=== PATIENT | female | born 1960 | race Caucasian/White ===

== ENCOUNTER 2020-08-13 08:44 | Day surgery (SDC) | payer OTHER, SELFPAY ==
[2020-08-09 13:42] VITALS: BMI 19.8
[2020-08-09 13:48] VITALS: BMI 19.8
[2020-08-13] MEDS: sodium chloride 0.9% 1,000 ML 30 ML IV (09:22)
--- NOTE | 2020-08-13 09:38 | W.PM.OPSFHP ---
Same Day Surgery H&P Indication for Procedure/HPI DATE OF PROCEDURE: August 13, 2020 CHIEF COMPLAINT/INDICATIONFOR SURGICAL PROCEDURE: Dysphagia PREOP DIAGNOSIS: d PLANNED PROCEDRUE: Operation Date: 08/13/20 09:45 Proposed Procedures p EGD Dilation W/ Bougie 79078 r13.10(Not Applicable) - Myles Hays MD Medications/Allergies* Home Medications Medication Instructions Recorded Confirmed Type tramadol 50 mg tablet 50 mg PO Q6H PRN 07/09/20 08/13/20 History Allergies/Adverse Reactions Allergy/AdvReac Type Severity Reaction Status Date / Time iodine Allergy Unknown Verified 08/13/20 09:00 morphine Allergy Unknown Verified 08/13/20 09:00 Current Medications: Generic Name Dose Route Start Last Admin Trade Name Freq PRN Reason Stop Dose Admin Sodium Chloride 1,000 mls @ 30 mls/hr 08/13/20 09:00 08/13/20 09:22 Sodium Chloride 0.9% IV 30 mls/hr .Q24H ZHAO Administration Pertinent History/Comorbid Conditions* Medical History (Updated 07/09/20 @ 14:55 by Myles Hays MD) GERD (gastroesophageal reflux disease) Hiatal hernia Family History (Updated 07/09/20 @ 14:16 by Tiffanie Cintron RN) Diabetes Family/Other Myocardial infarction Grandmother Family/Other Aunt Cancer Grandmother lung Social History Smoking and tobacco status: never smoked Alcohol intake: never Current gender identity: Female Pertinent Exam Findings alert, oriented x 3, clear to auscultation bilaterally, regular rate & rhythm, operative site marked and procedure specific exam findings Recommendations Surgery/Procedure today Coding Level of Care Code Acute 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
--- NOTE | 2020-08-13 09:57 | ANES.PREANE2 ---
Pre-Anesthetic Assessment Pre-Anesthetic Assessment: Height/Weight: Height 1.68 m Weight 55.792 kg Proposed Procedure: Operation Date: 08/13/20 09:45 Proposed Procedures p EGD Dilation W/ Bougie 19632 r13.10(Not Applicable) - Myles Hays MD Was Beta Loren taken within 24 hours: N/A Last intake: Intake Last Liquid Date 08/12/20 Last Liquid Time 20:00 Last Solid Date 08/12/20 Last Solid Time 20:00 Social: Social History: No alcohol and No tobacco Exam: Pre-Anes Outpt Exam: alert, oriented x 3, clear to auscultation bilaterally and regular rate & rhythm Airway: Submandibular: WNL Cervical ROM: WNL MP: 2 Dentition: Full History/ROS: No significant history except as noted Musc/skel: Musc/skel: Fibromyalgia Comments: Chronic pain Neuropsych: Neuropsych: None reported Anesthetic Plan: ASA status: 2 Anesthesia: MAC Risk of > 500 ml blood loss (7ml/kg in children): No Meds/Allergies Current Medications: Current Medications Generic Name Dose Route Start Last Admin Trade Name Freq PRN Reason Stop Dose Admin Sodium Chloride 1,000 mls @ 30 ml s/hr 08/13/20 09:00 08/13/20 09:22 Sodium Chloride 0.9% IV 30 mls/hr .Q24H ZHAO Administration PFSH Anesthesia PFSH: Medical History (Updated 07/09/20 @ 14:55 by Myles Hays MD) GERD (gastroesophageal reflux disease) Hiatal hernia Family History (Updated 07/09/20 @ 14:16 by Tiffanie Cintron RN) Grandmother Myocardial infarction Cancer lung Family/Other Myocardial infarction Aunt Diabetes Social History (Updated 07/09/20 @ 11:34 by Tiffanie Cintron, RN) Smoking and tobacco status: never smoked Alcohol intake: never Current gender identity: Female Data Anesthesia Cardiac Studies: No Data to Display
[2020-08-13 09:58] VITALS: BP 109/56; PULSE 52; RESP 16; TEMP 36.4; O2SAT 100
--- NOTE | 2020-08-13 10:05 | ANE.PACU2 ---
Inpatient post-anesthesia follow up: Airway intact: Yes Vital signs: Temperature 97.5 F Pulse Rate 52 Respiratory Rate 16 Blood Pressure 109/56 Pulse Oximetry 100 Oxygen Delivery Me thod Nasal Cannula Oxygen Flow Rate 2 Fraction of Inspir ed Oxygen Hydration adequate: Yes Nausea and vomiting: Yes Mental status: Baseline
[2020-08-13 10:22] VITALS: BP 111/61; PULSE 45; RESP 18; O2SAT 100
--- NOTE | 2020-08-13 15:19 | ANE.PACU2 ---
Inpatient post-anesthesia follow up: Airway intact: Yes Vital signs: Temperature 97.5 F Pulse Rate 45 Respiratory Rate 18 Blood Pressure 111/61 Pulse Oximetry 100 Oxygen Delivery Me thod Room Air Oxygen Flow Rate 2 Fraction of Inspir ed Oxygen Hydration adequate: Yes Nausea and vomiting: No Pain level: 1 Mental status: Baseline
[2020-08-14 14:08] LABS: H. Pylori / CLO Test Negative
== END 2020-08-13 10:40 | disposition home or self-care (01) ==
PROVIDERS: PCP Internal Medicine; Visit Provider Internal Medicine
DX: R13.10 Dysphagia, unspecified (principal); K29.71 Gastritis, unspecified, with bleeding; M79.7 Fibromyalgia; K21.9 Gastro-esophageal reflux disease without esophagitis
CPT/HCPCS: 12345; 43239; 87077; J2704; J7030

== ENCOUNTER 2021-10-30 19:11 | Emergency (ER) | payer OTHER, SELFPAY ==
--- NOTE | 2021-10-30 19:14 | XRR_ITS ---
PROCEDURE INFORMATION: Exam: XR Chest Exam date and time: 10/30/2021 7:29 PM Age: 61 years old Clinical indication: Pain; Angina pectoris; Additional info: Chest pain TECHNIQUE: Imaging protocol: XR of the chest. Views: 1 view. COMPARISON: No relevant prior studies available. FINDINGS: Lungs: Lungs well expanded. No consolidation. Pleural spaces: Unremarkable. No pleural effusion. No pneumothorax. Heart/Mediastinum: Unremarkable. No cardiomegaly. Bones/joints: Unremarkable. XR/XR chest 1V portable [id number] IMPRESSION: No acute findings.
[2021-10-30 19:17] VITALS: BP 153/65; PULSE 84; RESP 16; TEMP 36.8; O2SAT 100; BMI 19.3
--- NOTE | 2021-10-30 19:25 | W.ED.CHESTPA ---
HPI - Chest Pain General: Chief Complaint: Chest Pain Stated Complaint: possible heart attack Time Seen by Provider: 10/30/21 19:16 History of Present Illness: Ms. Schuster is a 61-year-old lady with history of GERD who presents to the emergency department due to chest pain. Onset of symptoms was perhaps half an hour before presentation to the emergency department. She was carrying bags at that time but describes a pain which she has difficulty characterizing over chest with radiation towards the back. She had mild associated shortness of breath and episode of dizziness with this. Since onset of symptoms pain has persisted. Intensity of symptoms is moderate. Had a similar episode approximately 10 days ago however that resolved and this is more intense. This feels different than her baseline GERD. No other typical cardiac features associated with this. No other specific changes in health, exacerbating, or alleviating factors identified. Onset (ago): minute(s) Timing of current episode: constant Prior episodes: Yes (1) Onset: during exertion Pain location: substernal Pain radiation: right scapula Severity: moderate Relieving factors: nothing Exacerbating factors: nothing Associated symptoms: Reports nausea and other Review of Systems General: Reports: 10 or more systems reviewed and unremarkable except in HPI and below GI: Reports: nausea PFSH ED PFSH: Medical History GERD (gastroesophageal reflux disease) Hiatal hernia Family History Grandmother Myocardial infarction Cancer lung Family/Other Myocardial infarction Aunt Diabetes Social History Smoking and tobacco status: never smoked Alcohol intake: never Current gender identity: Female Physical Exam Const: COMMON NORMALS: alert GENERAL APPEARANCE: cooperative and well developed HENMT: COMMON NORMALS: normocephalic and atraumatic HEAD & SCALP: normocephalic and atraumatic Eye: COMMON NORMALS: conjunctivae normal CONJUNCTIVA: Yes conjunctivae normal SCLERA: sclerae normal Neck/C-Spine: COMMON NORMALS: supple GENERAL: Yes trachea midline Resp: COMMON NORMALS: clear to auscultation bilaterally EFFORT & INSPECTION: Yes able to speak in complete sentences AUSCULTATION: clear to auscultation bilaterally Cardio: COMMON NORMALS: regular rate and regular rhythm RATE: regular rate RHYTHM: regular rhythm GI: COMMON NORMALS: Soft to palpation PALPATION: Yes Soft to palpation and No Tenderness to palpation present (GI) PERCUSSION: normal to percussion Extremity: GENERAL: Yes normal exam except as noted and No edema Neuro: COMMON NORMALS: moves all extremities SENSORIUM/ORIENTATION: Yes alert and No Orientation impaired Psych: COMMON NORMALS: mental status grossly normal and Normal thought process present THOUGHT PROCESS: Normal thought process present Course ED course: - Patient was seen and evaluated by me at bedside - Patient placed on cardiac monitors, IV access obtained - Initial evaluation notable for exam as above - Labs and xrays personally interpreted by me. EKGs at 2153 and 1923 personally interpreted by me. Sinus rhythm with nonspecific ST segment abnormalities. No STEMI. - Aspirin and GI cocktail given - Labs notable for mild leukopenia of uncertain etiology. Delta troponin negative. - Imaging notable for no lobar consolidation or pneumothorax. - Upon serial reexamination after treatment the patient was improved - Based on patient history, evaluation, and testing as interpreted the most likely cause of the patient's condition is chest pain of uncertain etiology - The results of ED evaluation were discussed with the patient including possible disposition options. Patient has nonspecific ST segment abnormalities present on EKG and story is at least moderately suspicious. I discussed heart score methodology and risk ratification as well as estimated risk of major adverse cardiac events in the next 45 days. I offered her admission for further cardiac testing however she prefers outpatient cardiac testing. I will message case management for follow-up with cardiology. I discussed prescriptions and/or symptomatic cares (if applicable) including appropriate and responsible use, followup plan, and return precautions. The patient verbalized understanding and felt safe for discharge. - Patient discharged in satisfactory condition. Note: Click bubbles or prepopulated harpre in note writing are used for assistance with data collection and billing and are inherently more limited than narrative and other text portions of this note. Please use narrative for additional clinical history and defer to narrative/free test for any case of contradictory information. If information appears in only free text or click bubble it should be considered present or absent as reported. Please contact note automobile service writer for clarifications of clinical information or contradictory information. MDM is a brief summary, contradictory or erroneous seeming information should be clarified and full note should be reviewed. Vital Signs: Vital signs: Vital Signs Temperature 98.6 F 10/30/21 21:05 Pulse Rate 55 L 10/30/21 23:41 Respiratory Rate 12 10/30/21 23:41 Blood Pressure 135/73 10/30/21 23:41 Pulse Oximetry 97 10/30/21 23:41 MDM - Chest Pain Medical Decision Making 61-year-old lady presenting with chest pain. Delta troponin negative. Labs without obvious cause of symptoms. Improved on reexamination. Offered admission versus outpatient cardiology follow-up. Patient prefers outpatient follow-up. Satisfactory for discharge with strict return precautions. Medical Records I reviewed the patient's medical records. Lab Data I reviewed the patient's lab results. : 10/30/21 19:50 10/30/21 19:50 Radiology Impressions Chest X-Ray 10/30/21 19:14 IMPRESSION: No acute findings. Laboratory Results WBC 3.8 10^3/uL (4.0-10.0) L 10/30/21 19:50 RBC 4.25 10^6/uL (4.1-5.3) 10/30/21 19:50 Hgb 12.7 g/dL (11.5-15.3) 10/30/21 19:50 Hct 38.4 % (37.0-47.0) 10/30/21 19:50 MCV 90.4 fl (81-99) 10/30/21 19:50 MCH 29.9 pg (28.0-34.0) 10/30/21 19:50 MCHC 33.1 g/dL (30.0-36.0) 10/30/21 19:50 RDW 12.4 % (12.1-15.1) 10/30/21 19:50 Plt Count 136 10^3/cmm (130-400) 10/30/21 19:50 MPV 10.7 fL (7.4-10.4) H 10/30/21 19:50 Neut % (Auto) 53.4 % 10/30/21 19:50 Lymph % (Auto) 39.2 % 10/30/21 19:50 Charlton % (Auto) 6.0 % 10/30/21 19:50 Eos % (Auto) 0.8 % 10/30/21 19:50 Baso % (Auto) 0.3 % 10/30/21 19:50 Neut # (Auto) 2.05 10^3/uL (1.8-7.7) 10/30/21 19:50 Lymph # (Auto) 1.5 10^3/uL (0.8-4.8) 10/30/21 19:50 Charlton # (Auto) 0.2 10^3/uL (0.2-0.9) 10/30/21 19:50 Eos # (Auto) 0.0 10^3/uL (0.0-0.8) 10/30/21 19:50 Baso # (Auto) 0.0 10^3/uL (0.0-0.1) 10/30/21 19:50 Nucleated RBC % (auto) 0 % 10/30/21 19:50 Nucleated RBCs # 0.0 /100WBC 10/30/21 19:50 Sodium 139 mmol/L (136-145) 10/30/21 19:50 Potassium 4.0 mmol/L (3.5-5.1) 10/30/21 19:50 Chloride 101 mmol/L (98-107) 10/30/21 19:50 Carbon Dioxide 29 mmol/L (22-29) 10/30/21 19:50 Anion Gap 13.0 (5-19) 10/30/21 19:50 BUN 18 mg/dL (6-20) 10/30/21 19:50 Creatinine 0.7 mg/dL (0.5-0.9) 10/30/21 19:50 GFR Calculation 85.6 mL/min (90-130) L 10/30/21 19:50 Glucose 107 mg/dL (65-115) 10/30/21 19:50 Calculated Osmolality 290 mOsm/kg (285-295) 10/30/21 19:50 Calcium 8.7 mg/dL (8.5-10.5) 10/30/21 19:50 Troponin T Baseline 6 ng/L (0-10) 10/30/21 19:50 Troponin T 120 Minute 6.00 ng/L (0-10) 10/30/21 21:29 Delta Troponin T 0 ABS# (0-10) 10/30/21 21:29 Lipase 42 U/L (13-60) 10/30/21 19:50 Discharge Plan Discharge Patient Disposition: Home Clinical Impression: Chest pain Condition: Stable Prescriptions: No Action Dexilant 60 mg capsule,biphase delayed releas 60 mg PO DAILY Qty: 90 3RF tramadol 50 mg tablet 50 mg PO Q6H PRN (Reason: Pain) Qty: 120 5RF Discharge Orders: Discharge ED (Routine); Ordered 10/30/21 Ordered By: Antwon Lu Referrals: Myles Hays MD [Primary Care Provider] - Discharge Diet: Usual diet Discharge Activity: Resume usual activity Patient Instructions: Chest Pain (ED) Activity Restrictions/Additional Instructions: Thank you for visiting the emergency department. You were seen and evaluated for chest pain. The exact cause of your chest pain is unclear and does require further evaluation. I will message our rn field case manager for cardiology follow-up. Please follow-up with your primary care provider. Please return to the emergency department for anything else that you are concerned about and feel needs emergency department evaluation. Coding Level of Care Code ED Cutting Machine Operator for Kiarra Fwd Exam Comprehensive
[2021-10-30 19:57] LABS: Basophils % 0.3 %; Eosinophils % 0.8 %; Hematocrit 38.4 % (37.0-47.0); Hemoglobin 12.7 g/dL (11.5-15.3); Lymphocytes # 1.5 10^3/uL (0.8-4.8); Lymphocytes % 39.2 %; Mean Corpuscular HGB Conc 33.1 g/dL (30.0-36.0); Mean Corpuscular Hemoglobin 29.9 pg (28.0-34.0); Mean Corpuscular Volume 90.4 fl (81-99); Mean Platelet Volume 10.7 fL (7.4-10.4); Monocytes # 0.2 10^3/uL (0.2-0.9); Neutrophils # 2.05 10^3/uL (1.8-7.7); Neutrophils % 53.4 %; Nucleated Red Blood Cells % 0 %; Platelet Count 136 10^3/cmm (130-400); Red Blood Count 4.25 10^6/uL (4.1-5.3); Red Cell Distribution Width 12.4 % (12.1-15.1); White Blood Count 3.8 10^3/uL (4.0-10.0)
[2021-10-30 20:15] LABS: Blood Urea Nitrogen 18 mg/dL (6-20); Calcium 8.7 mg/dL (8.5-10.5); Carbon Dioxide 29 mmol/L (22-29); Chloride 101 mmol/L (98-107); Creatinine Clr Calc Pharmacy 78.3475; Glomerular Filtration Rate 85.6 mL/min (90-130); Glucose 107 mg/dL (65-115); Osmolality Calculated 290 mOsm/kg (285-295); Sodium 139 mmol/L (136-145)
[2021-10-30 20:16] LABS: Troponin(5th) Baseline 6 ng/L (0-10)
[2021-10-30 20:27] LABS: Lipase 42 U/L (13-60)
[2021-10-30] MEDS: aspirin 81 mg Chew Tablet 324 MG PO (20:39)
[2021-10-30] MEDS: lidocaine 2% viscous 15 ML, aluminum-mag hydrox-simethicon 30 ML, sucralfate oral liq 1 GM PO (20:40)
[2021-10-30 21:05] VITALS: BP 142/68; PULSE 60; RESP 18; TEMP 37; O2SAT 100
--- NOTE | 2021-10-30 21:14 | ECG_ITS ---
[facility] Test Date: 2021-10-30 Pat Name: Dorie Schuster Department: Room: Gender: Female Powder Compounder: : 1960 Requested By: Colten Maciel Order Number: [id number] Darshana MD: Maximo Todd M.D. Measurements Intervals [place] Rate: 58 P: 78 VT: 149 QRS: 50 QRSD: 87 T: 65 QT: 367 QTc: 362 Interpretive Statements SINUS BRADYCARDIA POSSIBLE RIGHT VENTRICULAR CONDUCTION DELAY [RSR (QR) IN V1/V2] SEPTAL MYOCARDIAL INFARCTION , OF INDETERMINATE AGE [40+ ms Q WAVE IN V1/V2] No previous ECG available for comparison Electronically Signed On 10-31-2021 18:15:13 CDT by Maximo Todd M.D. [id number]
[2021-10-30 21:58] VITALS: BP 130/60; PULSE 55; RESP 18; O2SAT 99
[2021-10-30 22:06] LABS: Troponin 5 2HR Delta 0 ABS# (0-10)
[2021-10-30 23:02] VITALS: BP 129/62; PULSE 50; RESP 16; O2SAT 99
[2021-10-30 23:41] VITALS: BP 135/73; PULSE 55; RESP 12; O2SAT 97
--- NOTE | 2021-11-01 11:51 | DCPLANNER ---
Addendum entered by Kortney Hernandez 12/13/21 17:12: Patient had a follow up appointment scheduled for 12.12.21 with [facility] - appointment was cancelled. Addendum entered by Kortney Hernandez 11/05/21 14:50: Patient has a follow up appointment scheduled for November at 3:[address] Diaz at [facility]. security program manager called patient and gave patient the appointment information. Original Note: security program manager had message to schedule a follow up appointment for patient with [facility]. security program manager sent patients information to the front staff at [facility] for review. Patients information will be printed and reviewed. Clinic will notify leather case finisher of the schedule appointment. security program manager will call patient with appointment information.
== END 2021-10-30 23:42 | disposition home or self-care (01) ==
PROVIDERS: Emergency Medicine; Emergency Provider Emergency Medicine; PCP Internal Medicine
DX: R07.9 Chest pain, unspecified (principal); K21.9 Gastro-esophageal reflux disease without esophagitis; K44.9 Diaphragmatic hernia without obstruction or gangrene
CPT/HCPCS: 71045; 80048; 83690; 84484; 85025; 93005; 99283

== ENCOUNTER 2022-01-03 06:14 | Outpatient (CLI) | payer OTHER, SELFPAY ==
--- NOTE | 2022-01-03 06:30 | US_ITS ---
WS: [id number] RIGHT UPPER QUADRANT ULTRASOUND HISTORY: Epigastric pain. Post prandial COMPARISON: None available. Liver: 14.4 cm in length. Normal size liver. No bile duct dilatation or mass. Portal Vein: Normal hepatopetal flow with monophasic waveform. Gallbladder: Mildly obscured gallbladder due to numerous stones within the lumen. The gallbladder wal l is top normal size throughout. No pericholecystic fluid. Large amount shadowing obscuring portions of the gallbladder. CBD: 0.7 cm Pancreas: Normal size and echogenicity. Right kidney: 10.3 cm in length. Normal size and echogenicity. No hydronephrosis or mass. Aorta and IVC: Unremarkable abdominal aorta and IVC. No ascites. US/US gall bladder [id number] IMPRESSION: 1. Cholelithiasis. Numerous stones within the gallbladder. 2. No bile duct dilatation.
== END 2022-01-03 06:15 | disposition home or self-care (01) ==
LOC: RAD 06:17
PROVIDERS: PCP Internal Medicine; Visit Provider Internal Medicine
DX: K80.20 Calculus of gallbladder without cholecystitis without obstruction (principal); R10.13 Epigastric pain
CPT/HCPCS: 76705

== ENCOUNTER 2022-01-23 06:06 | Day surgery (SDC) | payer OTHER, SELFPAY ==
[2022-01-22 14:41] VITALS: BMI 19.3
[2022-01-23] VITALS (11 sets, daily range): BP systolic 120–160; BP diastolic 47–79; PULSE 45–64; RESP 16–22; TEMP 36.2–36.6; O2SAT 99–100
--- NOTE | 2022-01-23 06:33 | ANES.PREANE2 ---
Pre-Anesthetic Assessment Height/Weight: Height 1.68 m Weight 54.431 kg Temp Pulse Resp BP Pulse Ox 97.4 F L 63 17 120/70 100 01/23/22 06:19 01/23/22 06:19 01/23/22 06:19 01/23/22 06:19 01/23/22 06:19 Preop Diagnosis: inguinal hernia Operation Date: 01/23/22 07:30 Proposed Procedures p lap romeo 82933,K80.20(Not Applicable) - Elia Felder MD Familial anesthetic complications: None Was Beta Loren taken within 24 hours: N/A Was Clonidine taken within 24 hours: N/A Last intake: Intake Last Liquid Date 01/22/22 Last Liquid Time 21:30 Last Solid Date 01/22/22 Last Solid Time 21:30 Social No alcohol and No tobacco Exam alert, oriented x 3, clear to auscultation bilaterally and regular rate & rhythm Airway Mallampati: Class I Dentition: full GI Gastroesophageal Reflux Disease and Hiatal Hernia (?) Musc/skel Fibromyalgia Anesthetic Plan ASA status: 2 Anesthesia: General Risk of > 500 ml blood loss (7ml/kg in children): No Medications/Allergies Home Medications Medication Instructions Recorded Confirmed Last Taken Type dexlansoprazole 60 mg 60 mg PO DAILY #90 cap 09/25/21 01/23/22 01/23/22 04:45 Rx capsule,biphase delayed release (Dexilant) tramadol 50 mg tablet 50 mg PO Q6H PRN #120 tab 10/21/21 01/23/22 01/23/22 04:45 Rx Allergies Allergy/AdvReac Type Severity Reaction Status Date / Time iodine Allergy Unknown Verified 01/10/22 08:28 latex Allergy ALGY-Rash Verified 01/23/22 06:21 morphine Allergy Unknown Verified 01/10/22 08:28 [facility] Anesthesia Medical History Asthma GERD (gastroesophageal reflux disease) Hiatal hernia Surgical History H/O esophagogastroduodenoscopy H/O toe surgery History of 2 sections History of colonoscopy Family History Grandmother Myocardial infarction Cancer lung Family/Other Myocardial infarction Aunt Diabetes Social History Smoking and tobacco status: never smoked Alcohol intake: never Current gender identity: Female Data Anesthesia Cardiac Studies: No Data to Display
[2022-01-23] MEDS: sodium chloride 0.9% 1,000 ML 30 ML IV (06:41)
[2022-01-23] MEDS: scopolamine 1.5 Patch 1 PATCH TRANSDERMA (06:42)
--- NOTE | 2022-01-23 06:49 | P.HP_ITS ---
Same Day Surgery H&P Indication for Procedure/HPI DATE OF PROCEDURE: January 23, 2022 CHIEF COMPLAINT/INDICATIONFOR SURGICAL PROCEDURE: cholelithiasis/ lap romeo PREOP DIAGNOSIS: inguinal hernia PLANNED PROCEDURE: Operation Date: 01/23/22 07:30 Proposed Procedures p lap romeo 62554,K80.20(Not Applicable) - Elia Felder MD Medications/Allergies* Allergies/Adverse Reactions Allergy/AdvReac Type Severity Reaction Status Date / Time iodine Allergy Unknown Verified 01/10/22 08:28 latex Allergy ALGY-Rash Verified 01/23/22 06:21 morphine Allergy Unknown Verified 01/10/22 08:28 Current Medications: Generic Name Dose Route Start Last Admin Trade Name Freq PRN Reason Stop Dose Admin Sodium Chloride 1,000 mls @ 30 mls/hr 01/23/22 06:15 01/23/22 06:41 Sodium Chloride 0.9% IV 01/24/22 06:14 30 mls/hr .Q24H ZHAO Administration Pertinent History/Comorbid Conditions* Medical History (Updated 01/10/22 @ 08:46 by Elia Felder MD) Asthma GERD (gastroesophageal reflux disease) Hiatal hernia Surgical History (Updated 01/10/22 @ 08:46 by Elia Felder MD) H/O esophagogastroduodenoscopy H/O toe surgery History of 2 sections History of colonoscopy Family History (Updated 07/09/20 @ 14:16 by Tiffanie Cintron RN) Diabetes Family/Other Myocardial infarction Grandmother Family/Other Aunt Cancer Grandmother lung Social History Smoking and tobacco status: never smoked Alcohol intake: never Current gender identity: Female Pertinent Exam Findings alert, oriented x 3 and regular rate & rhythm Recommendations Surgery/Procedure today Coding Level of Care Code Acute Certified Professional Controller for Jonathang Mallorie
[2022-01-23] MEDS: ceFAZolin 2,000 MG in sodium chloride 0.9% (plus) 50 ML 100 MG IV (06:54)
[2022-01-23] MEDS: fentaNYL 50 mcg/mL INJ 2mL IVP (08:29)
--- NOTE | 2022-01-23 09:06 | P.OP_ITS ---
Operative Report Date of procedure: January 23, 2022 Pre-op diagnosis: Cholelithiasis Post-op diagnosis: Cholelithiasis with chronic inflammation in the Calot's triangle Procedure done: Laparoscopic cholecystectomy Specimens removed/disposition: Gallbladder Surgeon: Elia Felder Anesthesia: General Condition: stable Disposition: PACU Procedure: The patient was taken to the operating room and was intubated under general anesthesia. After the antibiotic had been administered, the abdomen was prepped and draped in a sterile manner. Using a #15 blade, a 1 centimeter infraumbilical curvilinear incision was made and using an open Eugenie technique the peritoneal cavity was entered. A 10 millimeter port was placed and 15 millimeters of pneumoperitoneum was created. A 10 millimeter, 30 degrees scope was then introduced. Three 5 millimeter ports were placed in the epigastric, midclavicular and the anterior axillary line two fingerbreadths below the costal margin on the right side under the direct visualization. Ratcheted forceps were introduced into the lateral most port and was used to retract the fundus of the gallbladder cephalad and using forceps the infundibulum of the gallbladder was retracted laterally. Using L-hook cautery the peritoneum overlying the Calot's triangle was opened medially and laterally until the cystic duct and the anter ior and posterior branch of the cystic artery were skeletonized. Dissection was carried along the body of the gallbladder and after ensuring critical view of safety, 4 clips applied on the cystic duct and 3 clips applied on the 2 branches of the cystic artery and cut leaving, 3 clips on the remaining portion of the duct and 2 clips on the remaining portion of the artery. The rest of the gallbladder was dissected off the liver using L-hook cautery. There was chronic inflammation in the Calot's triangle. There was no bleeding or bile leaking from the gallbladder fossa and the clips appeared to be in place. An EndoCatch bag was introduced to remove the gallbladder. All the ports were removed under direct visualization and there was no bleeding noted from the port sites. The fascia of the umbilicus was closed using [id number] 0 Vicryl sutures and the subcutaneous tissue was approximated using 3-0 Vicryl sutures. The skin at all four ports were closed using 4-0 Monocryl and Dermabond. A total of 10 millimeters of 0.5% Marcaine was infiltrated around the port sites. The patient was stable throughout the procedure.
[2022-01-23] MEDS: HYDROcodone-acetaminophen 5-325 mg Tablet 1 TAB PO (09:10)
--- NOTE | 2022-01-23 16:34 | ANE.PACU2 ---
Inpatient post-anesthesia follow up: Airway intact: Yes Vital signs: Temperature 97.2 F Pulse Rate 60 Respiratory Rate 18 Blood Pressure 136/47 Pulse Oximetry 100 Oxygen Delivery Me thod Room Air Oxygen Flow Rate 10 Fraction of Inspir ed Oxygen Hydration adequate: Yes Nausea and vomiting: No Pain level: 2 Mental status: Baseline
== END 2022-01-23 09:27 | disposition home or self-care (01) ==
PROVIDERS: PCP Internal Medicine; Visit Provider Surgery
PROC: 0FT44ZZ Resection of Gallbladder, Percutaneous Endoscopic Approach (ICD-10-PCS; CPT 47562; principal; 2022-01-23 07:30)
DX: K80.10 Calculus of gallbladder with chronic cholecystitis without obstruction (principal); K21.9 Gastro-esophageal reflux disease without esophagitis; M79.7 Fibromyalgia
CPT/HCPCS: 47562; 88304; J1100; J1200; J1885; J2405; J2704; J2710; J3010; J3490; J7030

== ENCOUNTER 2022-04-21 14:06 | Outpatient (CLI) | payer OTHER, SELFPAY ==
[2022-04-21 14:24] LABS: Eosinophils # 0.1 10^3/uL (0.0-0.8); Eosinophils % 2.4 %; Hemoglobin 12.3 g/dL (11.5-15.3); Lymphocytes # 1.3 10^3/uL (0.8-4.8); Lymphocytes % 30.7 %; Mean Corpuscular HGB Conc 32.4 g/dL (30.0-36.0); Mean Corpuscular Hemoglobin 29.2 pg (28.0-34.0); Mean Corpuscular Volume 90.3 fl (81-99); Mean Platelet Volume 10.5 fL (7.4-10.4); Monocytes # 0.2 10^3/uL (0.2-0.9); Monocytes % 4.6 %; Neutrophils # 2.53 10^3/uL (1.8-7.7); Neutrophils % 61.1 %; Nucleated Red Blood Cells % 0 %; Platelet Count 140 10^3/cmm (130-400); Red Blood Count 4.21 10^6/uL (4.1-5.3); Red Cell Distribution Width 12.7 % (12.1-15.1); White Blood Count 4.1 10^3/uL (4.0-10.0)
[2022-04-21 14:38] LABS: Erythrocyte Sedimentation Rate 6 mm/hr (0-15)
[2022-04-21 14:44] LABS: Alanine Aminotransferase 19 U/L (0-33); Alkaline Phosphatase 52 U/L (35-105); Anion Gap 10.8 (5-19); Aspartate Amino Transferase 26 U/L (0-32); Blood Urea Nitrogen 13 mg/dL (6-20); Calcium 8.8 mg/dL (8.5-10.5); Carbon Dioxide 31 mmol/L (22-29); Chloride 101 mmol/L (98-107); Globulin 2.4 g/dL (1.3-4.6); Glomerular Filtration Rate 73.4 mL/min (90-130); Glucose 104 mg/dL (65-115); Osmolality Calculated 288 mOsm/kg (285-295); Potassium 3.8 mmol/L (3.5-5.1); Sodium 139 mmol/L (136-145); Total Bilirubin 0.2 mg/dL (0.15-1.2); Total Protein 6.4 g/dL (6.6-8.7)
== END 2022-04-21 14:07 | disposition home or self-care (01) ==
LOC: LAB 14:08
PROVIDERS: PCP Internal Medicine; Visit Provider Internal Medicine
DX: R10.13 Epigastric pain (principal); R63.4 Abnormal weight loss
CPT/HCPCS: 80053; 85025; 85651

== ENCOUNTER 2024-05-11 13:30 | Outpatient (CLI) | payer OTHER, SELFPAY ==
--- NOTE | 2024-05-11 13:36 | XR_ITS ---
WS: [id number] SCREENING DEXA SCAN sevenload CLINICAL INFORMATION: POSTMENOPAUSAL COMPARISON: None. FINDINGS: The L1-L4 bone mineral density measures 0.981 g/cm2. This corresponds to a T score score of -1.7 and Z score of -0.1. Left femoral neck bone mineral density measures 0.789 g/cm2. This corresponds to a T score of -1.7 an d Z score of -0.5. Right femoral neck bone mineral density measures 0.811 g/cm2. This corresponds to a T score -1.6of an d Z score of -0.4. Mean femoral neck bone mineral density measures 0.800 g/cm2. This corresponds to a T score of -1.6 an d Z score of -0.4. XR/XR DEXA axial skeleton* [id number] IMPRESSION: Osteopenia lumbar spine. Osteopenia femoral necks. Patient's FRAX calculated 10 year probability for major osteoporotic fracture i s 7.3% and osteoporotic hip fracture is 0.7%.
--- NOTE | 2024-05-11 13:36 | MM_ITS ---
WS: [id number] BILATERAL SCREENING DIGITAL TOMOSYNTHESIS MAMMOGRAM WITH CAD HISTORY: SCREENING COMPARISON: 07/01/2017 Bilateral CC and MLO views with tomosynthesis and synthetic mammography submitted. Computer aided det ection analyzed. Breast composition: The breasts are heterogeneously dense, which may obscure small masses. No suspici ous masses, microcalcifications or architectural distortion. MM/MM scr BI tomosynthesis [id number] IMPRESSION: BI-RADS: 1 - Negative FOLLOW UP: 1 Year Follow-up
== END 2024-05-11 13:32 | disposition home or self-care (01) ==
PROVIDERS: PCP Family Medicine; Visit Provider Family Medicine
DX: Z12.31 Encounter for screening mammogram for malignant neoplasm of breast (principal); R92.333 Mammographic heterogeneous density, bilateral breasts; M85.80 Other specified disorders of bone density and structure, unspecified site; Z78.0 Asymptomatic menopausal state
CPT/HCPCS: 77063; 77067; 77080